=== PATIENT | female | born 1950 | race Caucasian/White ===

== ENCOUNTER 2025-01-14 08:38 | Emergency (ER) | payer MEDICARE, OTHER, SELFPAY ==
[2025-01-14 08:41] VITALS: BP 137/86; PULSE 76; RESP 18; TEMP 36.8; O2SAT 98
--- NOTE | 2025-01-14 08:41 | ED.GENADUL_ITS ---
Discharge Plan Discharge Details ED Provider: Damaso Padron [facility] General Date/Time Provider Initiated Documentation: 01/14/25 08:41 . PFSH Social History Smoking risk assessment performed?: No
--- NOTE | 2025-01-14 08:41 | W.ED.GENAD ---
Discharge Plan Discharge Details ED Provider: Damaso Padron [facility] General Date/Time Provider Initiated Documentation: 01/14/25 08:41. PFSH Social History Smoking risk assessment performed?: No
--- NOTE | 2025-01-14 08:46 | W.EDPROG ---
Date of service: 01/14/25 Time of Service: 08:46 Medical Decision Making I initially signed up to evaluate this patient but I did not see her nor participate in her care. Discharge Plan Discharge Details Chief Complaint: Allergic ED Provider: Russ Pantoja
--- NOTE | 2025-01-14 08:56 | W.ED.GENAD ---
Discharge Plan Disposition Patient Disposition: Home Discharge Details Clinical Impression: Hordeolum external, Periorbital cellulitis Primary Care Provider: Jaclyn,Local ED Provider: Diane Colunga Home Meds and New Rx's Prescriptions: New amoxicillin-pot clavulanate 875-125 mg tablet 1 tab PO BID Qty: 20 0RF erythromycin 5 mg/gram (0.5 %) ointment 0.5 inch ophthalmic (eye) 6XD Qty: 3.5 0RF amoxicillin-pot clavulanate 875-125 mg tablet 1 tab PO BID Qty: 20 0RF erythromycin 5 mg/gram (0.5 %) ointment 0.5 inch ophthalmic (eye) TID Qty: 3.5 0RF Continued atenolol 50 mg tablet 50 mg PO DAILY hydrochlorothiazide 50 mg tablet 50 mg PO DAILY amlodipine 5 mg tablet 5 mg PO DAILY Patient Comments: TAKE 1 TABLET BY MOUTH EVERY DAY fluoxetine 10 mg capsule 30 mg PO DAILY Patient Comments: TAKE ONE CAPSULE BY MOUTH EVERY DAY ALONG WITH 20MG simvastatin 20 mg tablet 20 mg PO DAILY Patient Comments: TAKE 1 TABLET BY MOUTH AT BEDTIME potassium chloride 20 mEq tablet,ER particles/crystals 20 meq PO DAILY Patient Comments: TAKE 1 TABLET BY MOUTH EVERY MORNING AND EVERY EVENING albuterol sulfate [Ventolin HFA] 90 mcg/actuation HFA aerosol inhaler 2 inh inhalation Q6H PRN Discharge Instructions Instructions: Stye, Preseptal Cellulitis ED Additional Instructions: take antibiotics as prescribed erythromycin ointment to lower lid 6x daily 10 min per hour warm compresses [facility]) in 48 hours with persistent or worsening symptoms/fever, vision change, or return to ED Discharge Data Discharge Date/Time-TO BE ENTERED AT DEPARTURE: 01/14/25 09:19 HPI General Date/Time Provider Initiated Documentation: 01/14/25 08:41. HPI Narrative: 74-year-old female with hypertension and hyperlipidemia presents with left upper lid pain since , followed by erythema yesterday. Warm compresses have not alleviated symptoms. Visiting from [place], returning home Wednesday. No acute vision changes, contact lenses, headache, fever, or chills. Related Data Home Medications ?Medication ?Instructions ?Recorded ?Confirmed albuterol sulfate 90 mcg/actuation 2 inh inhalation Q6H PRN 01/14/25 01/14/25 aerosol inhaler (Ventolin HFA) amlodipine 5 mg tablet 5 mg PO DAILY 01/14/25 01/14/25 amoxicillin 875 mg-potassium 1 tab PO BID #20 tabs 01/14/25 clavulanate 125 mg tablet amoxicillin 875 mg-potassium 1 tab PO BID #20 tabs 01/14/25 clavulanate 125 mg tablet atenolol 50 mg tablet 50 mg PO DAILY 01/14/25 01/14/25 erythromycin 5 mg/gram (0.5 %) eye 0.5 inch ophthalmic (eye) 6XD #3.5 01/14/25 ointment grams erythromycin 5 mg/gram (0.5 %) eye 0.5 inch ophthalmic (eye) TID #3.5 01/14/25 ointment grams fluoxetine 10 mg capsule 30 mg PO DAILY 01/14/25 01/14/25 hydrochlorothiazide 50 mg tablet 50 mg PO DAILY 01/14/25 01/14/25 potassium chloride 20 mEq 20 meq PO DAILY 01/14/25 01/14/25 tablet,extended release(part/cryst) simvastatin 20 mg tablet 20 mg PO DAILY 01/14/25 01/14/25 Previous Rx's ?Medication ?Instructions ?Recorded amoxicillin 875 mg-potassium 1 tab PO BID #20 tabs 01/14/25 clavulanate 125 mg tablet amoxicillin 875 mg-potassium 1 tab PO BID #20 tabs 01/14/25 clavulanate 125 mg tablet erythromycin 5 mg/gram (0.5 %) eye 0.5 inch ophthalmic (eye) 6XD #3.5 01/14/25 ointment grams erythromycin 5 mg/gram (0.5 %) eye 0.5 inch ophthalmic (eye) TID #3.5 01/14/25 ointment grams Allergies Allergy/AdvReac Type Severity Reaction Status Date / Time Latex, Natural Rubber Allergy Intermediate Other (See Verified 01/14/25 08:44 Comment) General Stated Complaint: Allergic RAJAN: 3 Exam Narrative Exam Narrative: General Appearance: Alert and oriented, no acute distress. Vital signs: Within normal limits. HEENT: Left upper eyelid hordeolum with preseptal cellulitis. No proptosis or exophthalmos. PERRLA. Visual acuity normal. No conjunctival injection or trauma. Respiratory: No respiratory distress. Cardiovascular: Regular cardiac rate and rhythm. Skin: Warm and dry, no rash. Neurological: No meningismus. Other observations: None. Course Vital Signs Vital signs: Vital Signs Temperature 36.8 C 01/14/25 08:41 Pulse 76 01/14/25 08:41 Respiratory Rate 18 01/14/25 08:41 Blood Pressure 137/86 01/14/25 08:41 Pulse Oximetry 98 01/14/25 08:41 Temperature 36.8 C 01/14/25 08:41 Temperature Source Oral 01/14/25 08:41 Pulse 76 01/14/25 08:41 Respiratory Rate 18 01/14/25 08:41 Respiratory Effort Normal, Non-Labored 01/14/25 08:49 Respiratory Pattern Normal 01/14/25 08:49 Blood Pressure 137/86 01/14/25 08:41 Pulse Oximetry 98 01/14/25 08:41 Medical Decision Making Initial Assessment: 74-year-old female with history of hypertension, hyperlipidemia, presents with left upper lid pain and erythema since . No acute vision change, headache, fever, or chills. No contact lens use. Alert and oriented, in no acute distress. ED Course: - Examination: hordeolum with preseptal cellulitis. - No proptosis, exophthalmos, or acute vision changes. - Cardiac rate rhythm regular. - No respiratory distress. - No meningismus. - No conjunctival injection or trauma to the eye. - Prescribed erythromycin ointment and Augmentin. - Encouraged continuation of warm compresses. - Reviewed early return precautions and hospitalization if no improvement. - Patient encouraged to be seen by her doctor in 24-48 hours for reassessment. Final Assessment: Hordeolum with preseptal cellulitis. Treatment with erythromycin ointment and Augmentin. Warm compresses advised. Early return precautions and follow-up with PCP in 24-48 hours. Clinical Impression: - Hordeolum with preseptal cellulitis. Disposition: - Follow-Up: Patient to follow up with PCP in 24-48 hours for reassessment. MDM Components Evaluation: - Number of Differential Diagnoses or Management Options: Hordeolum with preseptal cellulitis. - Amount and Complexity of Data Reviewed: Examination findings, patient history. - Risk of Complication and Morbidity or Mortality: Potential need for hospitalization if no improvement in symptoms. PFSH All Active Problems (Updated 01/14/25 @ 09:03 by ELOINA Isidro) Periorbital cellulitis (Acute) Hordeolum external (Acute) Social History Smoking/Tobacco Use Status: Never Smoking risk assessment performed?: Yes Alcohol Intake: current Alcohol Intake frequency: holidays/special occasions only Drug use: Occasionally Substance use type: marijuana Do you feel safe at home: Yes Do you feel safe in your relationship?: Yes
== END 2025-01-14 09:19 | disposition home or self-care (01) ==
LOC: ER 09:41
PROVIDERS: Emergency Provider Physician Assistant
DX: L03.213 Periorbital cellulitis (principal); H00.014 Hordeolum externum left upper eyelid
CPT/HCPCS: 99283 ×2; 123; 00123